=== PATIENT | male | born 1950 | race Caucasian/White ===

== ENCOUNTER → 2021-04-10 | Outpatient (CLI) | payer MEDICARE, OTHER | LOC: HEART 5 04-01 15:30 | DX: I50.9 Heart failure, unspecified (principal); R00.2 Palpitations ==

== ENCOUNTER → 2021-04-30 | Outpatient (CLI) | payer MEDICARE, OTHER | LOC: HEART 5 08:26 | DX: I50.9 Heart failure, unspecified (principal) | CPT/HCPCS: 78452; 93306; A9502; J2785 ==

== ENCOUNTER → 2021-05-29 | Outpatient (CLI) | payer MEDICARE, OTHER ==
[~2021-05-29] MED LIST: ASPIRIN81 MG PO; BUDESONIDE-FO10.2 G1 INH; DINO-LIFE WITH1 EACH PO; FLOMAX 0.4 MG0.4 MG PO; FLONASE 0.05% N16 GM; GLUCOPHAGE XR500 M1 PO; HYDRALAZINE HCL25 MG PO; HYDROCODON-ACE1 EAC4 PO; LASIX 40 MG TAB40 MG PO; LEVOFLOXACIN500 MG PO; LISINOPRIL-HCT1 EAC2 PO; LORATADINE10 MG PO; MAGNESIUM250 M1 PO; MONTELUKAST SOD10 MG PO; NIACIN FLUSH F400 MG PO; OMEGA 3 1,0001 EACH PO; POTASSIUM CHLO10 ME2 PO; PROAIR DIGIHAL90 MCG INH; PROZAC 20 MG CA20 MG PO; TRAZODONE HCL100 MG PO; VITAMIN D325 MC6 PO; ZYLOPRIM 100 M100 MG PO
== END ==
LOC: HEART 5 14:33
DX: R00.2 Palpitations (principal)

== ENCOUNTER → 2021-07-31 | Outpatient (CLI) | payer MEDICARE, OTHER ==
[2021-07-31 10:51] LABS: HEMOGLOBIN 14.9 gm/dl (14.0-17.5); RED BLOOD COUNT 5.05 M/UL (4.20-5.50)
[2021-07-31 11:10] LABS: BUN/CREATININE RATIO 17 (0-10)
== END ==
LOC: LAB 10:24
PROVIDERS: Internal Medicine Cardiovascular Disease
DX: I44.1 Atrioventricular block, second degree (principal); R55 Syncope and collapse; R00.1 Bradycardia, unspecified; Z20.822 Contact with and (suspected) exposure to COVID-19
CPT/HCPCS: 36415; 71046; 80048; 85025; U0003

== ENCOUNTER 2021-08-02 06:55 | Outpatient (CLI) | payer MEDICARE, OTHER ==
[~2021-08-02] VITALS: Ht 175.3 cm; Wt 90.7 kg
[2021-08-02] MEDS ORDERED: FLONASE 0.05% N16 GM (08:15)
[2021-08-02] MEDS ORDERED: LASIX 40 MG TAB40 MG PO (08:16)
[2021-08-02] MEDS ORDERED: MONTELUKAST SOD10 MG PO (08:17)
[2021-08-02] MEDS ORDERED: LISINOPRIL-HCT1 EAC2 PO (08:18)
[2021-08-02] MEDS ORDERED: ZYLOPRIM 100 M100 MG PO (08:18)
[2021-08-02] MEDS ORDERED: HYDRALAZINE HCL25 MG PO (08:19)
[2021-08-02] MEDS ORDERED: POTASSIUM CHLO10 ME2 PO (08:20)
[2021-08-02] MEDS ORDERED: GLUCOPHAGE XR500 M1 PO (08:21)
[2021-08-02] MEDS ORDERED: FLOMAX 0.4 MG0.4 MG PO (08:21)
[2021-08-02] MEDS ORDERED: PROZAC 20 MG CA20 MG PO (08:21)
[2021-08-02] MEDS ORDERED: ASPIRIN81 MG PO (08:23)
[2021-08-02] MEDS ORDERED: TRAZODONE HCL100 MG PO (08:23)
[2021-08-02] MEDS ORDERED: VITAMIN D325 MC6 PO (08:25)
[2021-08-02] MEDS ORDERED: DINO-LIFE WITH1 EACH PO (08:28)
[2021-08-02] MEDS ORDERED: OMEGA 3 1,0001 EACH PO (08:28)
[2021-08-02] MEDS ORDERED: PROAIR DIGIHAL90 MCG INH (08:30)
[2021-08-02] MEDS ORDERED: MAGNESIUM250 M1 PO (08:31)
[2021-08-02] MEDS ORDERED: NIACIN FLUSH F400 MG PO (08:32)
[2021-08-02] MEDS ORDERED: BUDESONIDE-FO10.2 G1 INH (08:33)
[2021-08-02] MEDS ORDERED: LORATADINE10 MG PO (08:35)
[2021-08-02] MEDS ORDERED: HYDROCODON-ACE1 EAC4 PO (11:46)
[2021-08-02] MEDS ORDERED: LEVOFLOXACIN500 MG PO (11:46)
== END 2021-08-03 13:24 | disposition home or self-care (01) ==
LOC: CATH 06:55 → M/S 16:45 → CATH 08-03 13:24
DX: I44.1 Atrioventricular block, second degree (principal); R00.1 Bradycardia, unspecified; I11.0 Hypertensive heart disease with heart failure; I50.9 Heart failure, unspecified; E11.9 Type 2 diabetes mellitus without complications; J44.9 Chronic obstructive pulmonary disease, unspecified; F41.9 Anxiety disorder, unspecified; F32.9 Major depressive disorder, single episode, unspecified; N40.0 Benign prostatic hyperplasia without lower urinary tract symptoms; M10.9 Gout, unspecified; M06.9 Rheumatoid arthritis, unspecified; E55.9 Vitamin D deficiency, unspecified; G47.00 Insomnia, unspecified; M19.90 Unspecified osteoarthritis, unspecified site; G47.33 Obstructive sleep apnea (adult) (pediatric); Z79.899 Other long term (current) drug therapy; Z79.84 Long term (current) use of oral hypoglycemic drugs; Z79.82 Long term (current) use of aspirin; Z88.1 Allergy status to other antibiotic agents; Z87.891 Personal history of nicotine dependence
CPT/HCPCS: 33208; 71045; 82962; 93005; 99152; 99153; C1898; C2621; J1200; J1644; J2250; J3010; J3370; J7040; J7050; J7070

== ENCOUNTER → 2022-07-24 | Outpatient (CLI) | payer MEDICARE, OTHER | LOC: ECHO 10:38 | DX: I11.0 Hypertensive heart disease with heart failure (principal); I50.9 Heart failure, unspecified; I08.3 Combined rheumatic disorders of mitral, aortic and tricuspid valves | CPT/HCPCS: ECHO; 93306 ==